=== PATIENT | female | born 1990 | race Caucasian/White ===

== ENCOUNTER 2017-03-17 12:59 | Emergency (ER) | payer OTHER ==
[2017-03-17 13:11] VITALS: BMI 26.7
[2017-03-17 15:29] VITALS: BP 108/54; PULSE 87; TEMP 97.8
[2017-03-17 15:39] LABS: URINE APPEARANCE CLEAR; URINE BILIRUBIN NEGATIVE (NEGATIVE); URINE BLOOD NEGATIVE (NEGATIVE); URINE COLOR LTYELLOW; URINE GLUCOSE (UA) NEGATIVE (NEGATIVE); URINE KETONE NEGATIVE (NEGATIVE); URINE NITRITE NEGATIVE (NEGATIVE); URINE PROTEIN NEGATIVE (NEGATIVE); URINE UROBILINOGEN NEGATIVE mg/dL (0.2-1.0)
[2017-03-17 17:23] LABS: URINE LEUK ESTERASE Negative (NEGATIVE)
== END 2017-03-17 16:35 | disposition home or self-care (01) ==
LOC: JER 12:59 → JERFT 12:59 → JER 16:35
DX: O26.892 Other specified pregnancy related conditions, second trimester (principal); Z3A.20 20 weeks gestation of pregnancy
CPT/HCPCS: 81003; 87086; 99281-25